=== PATIENT | female | born 1945 | race Caucasian/White ===

== ENCOUNTER 2018-12-23 13:33 | Emergency (ER) | payer MEDICARE ==
[~2018-12-23] VITALS: Ht 167.6 cm; Wt 104.8 kg
[~2018-12-23 13:33] MED LIST: FLOVENT; FLUTICASONE; GUAIFENSIN; IMATREX; PANTOPRAZOLE; SENNA; SERVENT; SIMVASTATIN; SINGULAIR; TUMS; Z.0.AZITHROMYCIN250 PO; ZOLPIDEM; ZYRTEC; [UNRECOGNIZED DRUG - OTHER]; [UNRECOGNIZED DRUG - OTHER]
--- NOTE | 2018-12-23 14:46 | Diagnostic Imaging Report ---
LEFT FOOT X-RAY - 3 VIEWS HISTORY: ^r/o fx ^[id number] ^[id number] COMPARISON: None available. FINDINGS: Bones: Acute transverse fracture of the distal left third proximal phalanx with half bone displacement laterally. Osseous alignment is within normal limits. Joints: Degenerative changes of the metacarpal phalangeal joints. Soft tissues: Soft tissue swelling surrounding the fracture. 1 mm radiopaque opacity adjacent to the distal left fifth toe. IMPRESSION: Acute displaced extra-articular fracture of the proximal left third phalanx. Small radiopacity adjacent to the left fifth digit may represent a small foreign body. Signed by: Dr. Rasheeda Bower M.D. on 12/23/2018 2:43 PM
[2018-12-23] MEDS: LIDOCAINE 1% 5ML-MPF INJ ONE ×2 (14:51→14:52)
[2018-12-23] MEDS ORDERED: TRAMADOL HCL 50 MG TAB PO ONE (15:00)
[2018-12-23 15:28] VITALS: BP 147/82
--- NOTE | 2018-12-23 16:25 | Diagnostic Imaging Report ---
LEFT TOE X-RAY - 1 VIEW HISTORY: ^post redution 3rd toe ^[id number] ^[id number] COMPARISON: None available. FINDINGS: Bones: Interval reduction of the displaced fracture of the distal left-sided proximal phalanx. There is normal alignment. Joints: The joint spaces are well-maintained. Soft tissues: The soft tissues appear unremarkable. IMPRESSION: Successful closed reduction of the displaced fracture of the left third proximal phalanx. Signed by: Dr. Rasheeda Bower M.D. on 12/23/2018 4:22 PM
== END 2018-12-23 15:31 | disposition home or self-care (01) ==
LOC: ER 13:33
DX: S92.512A Displaced fracture of proximal phalanx of left lesser toe(s), initial encounter for closed fracture (principal); W22.09XA Striking against other stationary object, initial encounter; Y93.01 Activity, walking, marching and hiking; Y92.008 Other place in unspecified non-institutional (private) residence as the place of occurrence of the external cause; J44.9 Chronic obstructive pulmonary disease, unspecified
CPT/HCPCS: 99282

== ENCOUNTER 2025-01-13 19:23 | Inpatient (IN) | payer MEDICARE ==
[~2025-01-13] VITALS: Ht 167.6 cm; Wt 104.8 kg
[2025-01-13] MEDS: TRAMADOL HCL 50 MG TAB PO ONE (20:09)
[2025-01-13 20:18] LABS: ALBUMIN/GLOBULIN RATIO 0.5 (0.8-2.0); ANION GAP 20.4 mmol/L (8-16); CALCIUM 8.5 mg/dL (8.4-10.2); CREATININE, SERUM 0.83 mg/dL (0.57-1.11); POTASSIUM 3.4 mmol/L (3.5-5.1); TOTAL PROTEIN 6.3 g/dL (6.5-8.1)
[2025-01-13 20:24] LABS: BASOPHILS # (AUTO) 0.1 (0.0-0.1); BASOPHILS % 0.6 % (0.0-1.0); EOSINOPHILS # (AUTO) 0.1 (0.0-0.4); EOSINOPHILS % 0.6 % (0.0-6.0); HEMATOCRIT 44.8 % (34.2-44.1); HEMOGLOBIN 15.7 g/dL (12.0-16.0); LYMPHOCYTES # (AUTO) 1.9 (1.0-3.2); LYMPHOCYTES % 15.7 % (18.0-39.1); MEAN CORPUSCULAR HEMOGLOBIN 29.1 pg (28-32); MONOCYTES # (AUTO) 1.5 (0.2-0.8); MONOCYTES % 12.6 % (4.4-11.3); NEUTROPHILS # (AUTO) 8.5 (2.1-6.9); PLATELET COUNT 716 x10e3/uL (140-360); RED CELL DISTRIBUTION WIDTH 17.3 % (11.7-14.4); WHITE BLOOD COUNT 12.18 x10e3/uL (4.8-10.8)
[2025-01-13] MEDS: ONDANSETRON HCL INJ 2MG/ML 2ML 2 MG/ML VIAL IV STA (21:07)
[2025-01-13] MEDS ORDERED: IOPAMIDOL 370 MG/ML 100 ML INFUS..BTL INJ ONE (22:07)
[2025-01-13 22:35] LABS: INR 1.16; PROTHROMBIN TIME 15.8 seconds (11.9-14.5)
[2025-01-13 22:36] LABS: PARTIAL THROMBOPLASTIN TIME 39.3 seconds (23.8-35.5)
[2025-01-14] VITALS (8 sets, daily range): BP systolic 83–99; BP diastolic 43–64; PULSE 70–129; RESP 14–22; TEMP 97.7–98.3; O2SAT 92–97
[2025-01-14] MEDS ORDERED: SODIUM CHLORIDE FLUSH 10 ML SYR INJ PRN (03:00)
[2025-01-14 04:36] LABS: TROPONIN I 0.029 ng/mL (0-0.300)
[2025-01-14] MEDS: Morphine 2mg Syringe 2 MG/ML SYR IV PRN (08:34)
[2025-01-14] MEDS ORDERED: ALBUTEROL/IPRATROPIUM 3 ML NEB NEB PRN (09:45)
[2025-01-14 14:28] LABS: BASOPHILS # (AUTO) 0.1 (0.0-0.1); BASOPHILS % 0.7 % (0.0-1.0); EOSINOPHILS # (AUTO) 0.1 (0.0-0.4); EOSINOPHILS % 0.6 % (0.0-6.0); HEMATOCRIT 46.2 % (34.2-44.1); HEMOGLOBIN 15.1 g/dL (12.0-16.0); LYMPHOCYTES # (AUTO) 2.2 (1.0-3.2); LYMPHOCYTES % 17.8 % (18.0-39.1); MEAN CORPUSCULAR HGB CONC 32.7 g/dL (31-35); MEAN CORPUSCULAR VOLUME 88.7 fL (81-99); MONOCYTES # (AUTO) 1.7 (0.2-0.8); MONOCYTES % 14.1 % (4.4-11.3); NEUTROPHILS % 66.2 % (38.7-80.0); PLATELET COUNT 677 x10e3/uL (140-360); RED BLOOD COUNT 5.21 x10e6/uL (3.6-5.1); RED CELL DISTRIBUTION WIDTH 18.7 % (11.7-14.4); WHITE BLOOD COUNT 12.09 x10e3/uL (4.8-10.8)
[2025-01-14 15:32] LABS: LYMPHOCYTES % (MANUAL) 14 % (19-48); MONOCYTES % (MANUAL) 14 % (3.4-9.0); NEUTROPHILS % (MANUAL) 69 % (40-74); REACTIVE LYMPHOCYTES 3
[2025-01-14 15:34] LABS: PLATELET ESTIMATE SLIGHTLY INCREASED; PLATELET MORPHOLOGY COMMENT FEW LARGE
[2025-01-14 15:35] LABS: HYPOCHROMASIA SLIGHT; TARGET CELLS FEW
[2025-01-14 15:36] LABS: RBC MORPHOLOGY COMMENT ABNORMAL
[2025-01-14] MEDS ORDERED: ALBUMIN 25% 12.5GM 50ML 0 ML IV ONE (15:57)
[2025-01-14 16:03] LABS: TROPONIN I 0.026 ng/mL (0-0.300)
[2025-01-14] MEDS: DOCUSATE SODIUM 100 MG CAP PO SCH (17:00)
[2025-01-14] MEDS ORDERED: SIMETHICONE80 MG PO (18:05)
[2025-01-14] MEDS ORDERED: SEREVENT DISKU50 MCG INH (18:05)
[2025-01-14] MEDS ORDERED: MONTELUKAST SOD10 MG PO (18:05)
[2025-01-14] MEDS ORDERED: FENOFIBRATE145 MG PO (18:05)
[2025-01-14] MEDS ORDERED: NEXIUM20 MG PO (18:05)
[2025-01-14] MEDS ORDERED: SENOKOT-S TABL1 EACH PO (18:05)
[2025-01-14] MEDS ORDERED: LASIX20 MG PO (18:05)
[2025-01-14] MEDS ORDERED: FLOMAX0.4 MG PO (18:05)
[2025-01-14] MEDS ORDERED: REGLAN10 MG PO (18:05)
[2025-01-14] MEDS ORDERED: FAMOTIDINE20 MG PO (18:05)
[2025-01-14] MEDS ORDERED: SULINDAC200 MG PO (18:05)
[2025-01-14] MEDS ORDERED: METOPROLOL TART25 MG PO (18:05)
[2025-01-14] MEDS ORDERED: TRULICITY1.5 MG/0.5 SC (18:05)
[2025-01-14] MEDS: FUROSEMIDE INJ 10 MG/ML 2 ML VIAL IV SCH (18:13)
[2025-01-14] MEDS: ENOXAPARIN SOD INJ 40 MG/0.4 ML SYR SC SCH (18:14)
[2025-01-14] MEDS: MELATONIN 3 MG TAB PO PRN (20:11)
[2025-01-14] MEDS: METOPROLOL TARTRATE 25 MG TAB PO SCH (20:12)
[2025-01-14 20:35] LABS: BODY FLUID TYPE PERITONEAL
[2025-01-14 20:36] LABS: BODY FLUID APPEARANCE TURBID; BODY FLUID COLOR YELLOW
[2025-01-14 20:38] LABS: BODY FLUID TYPE PLEURAL
[2025-01-14 20:40] LABS: BODY FLUID APPEARANCE TURBID
[2025-01-14 20:41] LABS: BODY FLUID COLOR YELLOW
[2025-01-14 22:04] LABS: LYMPHOCYTES,BODY FLUID 50 %; MONO/MACROPHG,BODY FLUID 4 %; NEUTROPHILS,BODY FLUID 8754 %
[2025-01-14 22:05] LABS: OTHER CELLS,BODY FLUID 46 %; TOTAL CELLS COUNTED (DIFF) 100
[2025-01-14 22:07] LABS: RBC,BODY FLUID 10000 cells/uL; WBC,BODY FLUID 1168 cells/uL
[2025-01-14 22:08] LABS: WBC,BODY FLUID 540 cells/uL
[2025-01-14 22:09] LABS: RBC,BODY FLUID 1000 cells/uL
[2025-01-14 22:12] LABS: LYMPHOCYTES,BODY FLUID 76 %; NEUTROPHILS,BODY FLUID 3 %
[2025-01-14 22:13] LABS: MONO/MACROPHG,BODY FLUID 17 %; OTHER CELLS,BODY FLUID 4 %; TOTAL CELLS COUNTED (DIFF) 100
[2025-01-14] MEDS: SODIUM CHLORIDE 0.9% 250ML 250 ML IV ONE (22:19)
[2025-01-14] MEDS: MIDODRINE HCL 5 MG TABLET PO SCH (22:19)
[2025-01-15] VITALS (29 sets, daily range): BP systolic 79–124; BP diastolic 40–78; PULSE 57–215; RESP 5–48; TEMP 98.9; O2SAT 87–100
[2025-01-15] MEDS: SODIUM CHLORIDE 0.9% 500ML 500 ML IV ONE (02:33)
[2025-01-15 05:46] LABS: ALPHA FETO-PROTEIN 3.5 ng/mL (0.0-9.2)
[2025-01-15 06:53] LABS: BASOPHILS # (AUTO) 0.1 (0.0-0.1); BASOPHILS % 0.7 % (0.0-1.0); EOSINOPHILS # (AUTO) 0.1 (0.0-0.4); EOSINOPHILS % 0.6 % (0.0-6.0); HEMATOCRIT 42.7 % (34.2-44.1); HEMOGLOBIN 14.4 g/dL (12.0-16.0); LYMPHOCYTES # (AUTO) 1.4 (1.0-3.2); LYMPHOCYTES % 10.9 % (18.0-39.1); MEAN CORPUSCULAR HEMOGLOBIN 28.7 pg (28-32); MEAN CORPUSCULAR HGB CONC 33.7 g/dL (31-35); MEAN CORPUSCULAR VOLUME 85.2 fL (81-99); MONOCYTES # (AUTO) 1.5 (0.2-0.8); MONOCYTES % 11.1 % (4.4-11.3); NEUTROPHILS % 76.2 % (38.7-80.0); PLATELET COUNT 682 x10e3/uL (140-360); RED BLOOD COUNT 5.01 x10e6/uL (3.6-5.1); RED CELL DISTRIBUTION WIDTH 17.4 % (11.7-14.4); WHITE BLOOD COUNT 13.16 x10e3/uL (4.8-10.8)
[2025-01-15 07:32] LABS: ALBUMIN 1.9 g/dL (3.5-5.0); ALBUMIN/GLOBULIN RATIO 0.6 (0.8-2.0); ANION GAP 15.3 mmol/L (8-16); BILIRUBIN,TOTAL 1.1 mg/dL (0.2-1.2); CALCIUM 8.1 mg/dL (8.4-10.2); CREATININE, SERUM 0.79 mg/dL (0.57-1.11); TOTAL PROTEIN 5.3 g/dL (6.5-8.1)
[2025-01-15 07:34] LABS: POTASSIUM 3.3 mmol/L (3.5-5.1)
[2025-01-15] MEDS: SENNOSIDES 8.6 MG TAB PO SCH (08:14)
[2025-01-15] MEDS: ONDANSETRON HCL INJ 2MG/ML 2ML 2 MG/ML VIAL IV PRN (19:50)
[2025-01-15] MEDS: ACETAMINOPHEN 325 MG TAB PO PRN (21:04)
[2025-01-16] VITALS (24 sets, daily range): BP systolic 90–110; BP diastolic 53–80; PULSE 57–120; RESP 10–24; TEMP 95.3–98.7; O2SAT 93–100
[2025-01-16 06:56] LABS: ANION GAP 18.7 mmol/L (8-16); CREATININE, SERUM 1.27 mg/dL (0.57-1.11); POTASSIUM 3.7 mmol/L (3.5-5.1)
[2025-01-16] MEDS: LUBIPROSTONE 24 MCG CAP PO SCH (09:51)
[2025-01-16] MEDS: PROMETHAZINE 12.5MG/ NACL 0.9% 12.5 MG/50 ML BAG IV PRN (14:27)
[2025-01-16 18:03] LABS: TOTAL PROTEIN,BODY FLUID 4.1 g/dL
[2025-01-17] VITALS (36 sets, daily range): BP systolic 88–116; BP diastolic 54–80; PULSE 59–126; RESP 9–21; TEMP 98–98.2; O2SAT 87–100
[2025-01-17] MEDS: FUROSEMIDE INJ 10 MG/ML 2 ML VIAL IV SCH (09:01)
[2025-01-17 09:33] LABS: ANION GAP 16.7 mmol/L (8-16); CALCIUM 8.1 mg/dL (8.4-10.2); CREATININE, SERUM 1.12 mg/dL (0.57-1.11); POTASSIUM 3.7 mmol/L (3.5-5.1)
[2025-01-18] VITALS (31 sets, daily range): BP systolic 89–118; BP diastolic 45–77; PULSE 57–123; RESP 9–22; TEMP 97.8–98; O2SAT 84–97
[2025-01-19] VITALS (28 sets, daily range): BP systolic 96–121; BP diastolic 52–81; PULSE 57–123; RESP 12–21; TEMP 98.3–98.5; O2SAT 88–96
[2025-01-19] MEDS: LACTULOSE SYRUP 20 GM/30 ML UDC PO SCH (09:00)
[2025-01-19] MEDS: BISACODYL 10 MG SUPP PR ONE (09:20)
[2025-01-19] MEDS: SIMETHICONE 80 MG CHEW PO PRN (10:57)
[2025-01-19] MEDS: BISACODYL 5 MG TAB EC PO ONE (20:24)
[2025-01-20] VITALS (44 sets, daily range): BP systolic 90–124; BP diastolic 55–84; PULSE 59–123; RESP 7–21; TEMP 97.3–98.2; O2SAT 88–98
[2025-01-20 08:47] LABS: BASOPHILS # (AUTO) 0.1 (0.0-0.1); BASOPHILS % 0.9 % (0.0-1.0); EOSINOPHILS # (AUTO) 0.1 (0.0-0.4); EOSINOPHILS % 1.2 % (0.0-6.0); HEMATOCRIT 41.7 % (34.2-44.1); HEMOGLOBIN 14.3 g/dL (12.0-16.0); LYMPHOCYTES # (AUTO) 1.6 (1.0-3.2); LYMPHOCYTES % 15.3 % (18.0-39.1); MEAN CORPUSCULAR HEMOGLOBIN 28.9 pg (28-32); MEAN CORPUSCULAR HGB CONC 34.3 g/dL (31-35); MEAN CORPUSCULAR VOLUME 84.2 fL (81-99); MONOCYTES # (AUTO) 1.5 (0.2-0.8); MONOCYTES % 14.3 % (4.4-11.3); NEUTROPHILS # (AUTO) 6.9 (2.1-6.9); NEUTROPHILS % 67.9 % (38.7-80.0); PLATELET COUNT 652 x10e3/uL (140-360); RED BLOOD COUNT 4.95 x10e6/uL (3.6-5.1); RED CELL DISTRIBUTION WIDTH 17.7 % (11.7-14.4); WHITE BLOOD COUNT 10.13 x10e3/uL (4.8-10.8)
[2025-01-20 09:15] LABS: ALBUMIN 1.8 g/dL (3.5-5.0); ALBUMIN/GLOBULIN RATIO 0.5 (0.8-2.0); ANION GAP 13.7 mmol/L (8-16); BILIRUBIN,TOTAL 0.8 mg/dL (0.2-1.2); CALCIUM 8.2 mg/dL (8.4-10.2); CREATININE, SERUM 0.98 mg/dL (0.57-1.11); POTASSIUM 3.7 mmol/L (3.5-5.1); TOTAL PROTEIN 5.4 g/dL (6.5-8.1)
[2025-01-21] VITALS (20 sets, daily range): BP systolic 86–115; BP diastolic 49–91; PULSE 51–132; RESP 10–22; TEMP 97.5–98.6; O2SAT 91–99
[2025-01-21] MEDS: Morphine 2mg Syringe 2 MG/ML SYR IV PRN (13:12)
[2025-01-21] MEDS: MAGNESIUM HYDROXIDE 30 ML UDC PO PRN (14:46)
[2025-01-21] MEDS: METOPROLOL TARTRATE INJ 1 MG/ML VIAL IV PRN (23:05)
[2025-01-22] VITALS (12 sets, daily range): BP systolic 95–140; BP diastolic 55–76; PULSE 59–74; RESP 18–22; TEMP 97.3–98.1; O2SAT 92–100
[2025-01-22 07:14] LABS: BASOPHILS # (AUTO) 0.1 (0.0-0.1); BASOPHILS % 1.1 % (0.0-1.0); EOSINOPHILS # (AUTO) 0.2 (0.0-0.4); EOSINOPHILS % 2.6 % (0.0-6.0); HEMATOCRIT 44.1 % (34.2-44.1); HEMOGLOBIN 14.8 g/dL (12.0-16.0); LYMPHOCYTES # (AUTO) 1.7 (1.0-3.2); MEAN CORPUSCULAR HEMOGLOBIN 28.7 pg (28-32); MEAN CORPUSCULAR HGB CONC 33.6 g/dL (31-35); MEAN CORPUSCULAR VOLUME 85.6 fL (81-99); MONOCYTES # (AUTO) 1.6 (0.2-0.8); MONOCYTES % 17.6 % (4.4-11.3); NEUTROPHILS # (AUTO) 5.2 (2.1-6.9); NEUTROPHILS % 59.2 % (38.7-80.0); PLATELET COUNT 646 x10e3/uL (140-360); RED BLOOD COUNT 5.15 x10e6/uL (3.6-5.1); RED CELL DISTRIBUTION WIDTH 18.4 % (11.7-14.4); WHITE BLOOD COUNT 8.81 x10e3/uL (4.8-10.8)
[2025-01-22 07:30] LABS: INR 1.14; PROTHROMBIN TIME 15.6 seconds (11.9-14.5)
[2025-01-22 07:31] LABS: PARTIAL THROMBOPLASTIN TIME 36.2 seconds (23.8-35.5)
[2025-01-22 07:43] LABS: ANION GAP 15.3 mmol/L (8-16); CALCIUM 8.5 mg/dL (8.4-10.2); CREATININE, SERUM 1.06 mg/dL (0.57-1.11); POTASSIUM 4.3 mmol/L (3.5-5.1)
[2025-01-22] MEDS ORDERED: MIDODRINE HCL5 MG PO (09:44)
[2025-01-22] MEDS ORDERED: MILK OF MA400 MG/5 M PO (09:44)
[2025-01-22] MEDS ORDERED: SENOKOT8.6 MG PO (09:44)
[2025-01-22] MEDS ORDERED: LOPRESSOR25 MG PO (09:44)
[2025-01-22] MEDS ORDERED: SIMETHICONE80 MG PO (09:44)
[2025-01-22] MEDS ORDERED: Docusate Sodium PO (09:44)
[2025-01-22] MEDS: ENOXAPARIN SOD INJ 40 MG/0.4 ML SYR SC SCH (16:58)
[2025-01-23] VITALS (12 sets, daily range): BP systolic 95–118; BP diastolic 52–62; PULSE 59–67; RESP 17–20; TEMP 97.8–98.7; O2SAT 91–100
[2025-01-23] MEDS: ALBUMIN 25% 25GM 100ML 0.25 GM/ML BTL IV ONE (18:13)
[2025-01-24] VITALS (7 sets, daily range): BP systolic 98–102; BP diastolic 59–70; PULSE 58–118; RESP 17–20; TEMP 98.1–98.6; O2SAT 94–98
[2025-01-24 07:29] LABS: ANION GAP 14.8 mmol/L (8-16); CALCIUM 8.1 mg/dL (8.4-10.2); CREATININE, SERUM 0.93 mg/dL (0.57-1.11); POTASSIUM 3.8 mmol/L (3.5-5.1)
[2025-01-24 12:22] LABS: BASOPHILS # (AUTO) 0.1 (0.0-0.1); BASOPHILS % 0.7 % (0.0-1.0); EOSINOPHILS # (AUTO) 0.7 (0.0-0.4); EOSINOPHILS % 8.2 % (0.0-6.0); LYMPHOCYTES # (AUTO) 1.4 (1.0-3.2); LYMPHOCYTES % 16.6 % (18.0-39.1); MEAN CORPUSCULAR HEMOGLOBIN 28.9 pg (28-32); MEAN CORPUSCULAR HGB CONC 33.3 g/dL (31-35); MEAN CORPUSCULAR VOLUME 86.6 fL (81-99); MONOCYTES # (AUTO) 1.5 (0.2-0.8); MONOCYTES % 17.5 % (4.4-11.3); NEUTROPHILS # (AUTO) 4.8 (2.1-6.9); NEUTROPHILS % 56.6 % (38.7-80.0); PLATELET COUNT 551 x10e3/uL (140-360); RED BLOOD COUNT 4.85 x10e6/uL (3.6-5.1); RED CELL DISTRIBUTION WIDTH 18.9 % (11.7-14.4); WHITE BLOOD COUNT 8.53 x10e3/uL (4.8-10.8)
== END 2025-01-24 14:42 | disposition other institution (70) | DRG 432 ==
LOC: ER 19:41 → ERHOLD 01-14 03:01 → ICU 01-14 15:54 → MED/SURG3 01-21 11:03
PROVIDERS: ADMIT Internal Medicine; ATTEND Internal Medicine
PROC: 3E0F7SF Introduction of Other Gas into Respiratory Tract, Via Natural or Artificial Opening (ICD-10-PCS; 2025-01-13)
PROC: 0W9G3ZX Drainage of Peritoneal Cavity, Percutaneous Approach, Diagnostic (ICD-10-PCS; principal; 2025-01-14)
PROC: 0W993ZX Drainage of Right Pleural Cavity, Percutaneous Approach, Diagnostic (ICD-10-PCS; 2025-01-14)
PROC: 0W993ZX Drainage of Right Pleural Cavity, Percutaneous Approach, Diagnostic (ICD-10-PCS; 2025-01-22)
PROC: 0W9G3ZX Drainage of Peritoneal Cavity, Percutaneous Approach, Diagnostic (ICD-10-PCS; 2025-01-24)
DX: K74.60 Unspecified cirrhosis of liver (principal); J96.01 Acute respiratory failure with hypoxia; C78.6 Secondary malignant neoplasm of retroperitoneum and peritoneum; C79.63 Secondary malignant neoplasm of bilateral ovaries; R18.8 Other ascites; J90 Pleural effusion, not elsewhere classified; N17.9 Acute kidney failure, unspecified; N13.30 Unspecified hydronephrosis; J95.811 Postprocedural pneumothorax; I47.9 Paroxysmal tachycardia, unspecified; K59.00 Constipation, unspecified; J44.9 Chronic obstructive pulmonary disease, unspecified; D75.838 Other thrombocytosis; Z80.49 Family history of malignant neoplasm of other genital organs; Z80.1 Family history of malignant neoplasm of trachea, bronchus and lung; Z79.2 Long term (current) use of antibiotics; Z79.891 Long term (current) use of opiate analgesic; Z79.51 Long term (current) use of inhaled steroids; M19.90 Unspecified osteoarthritis, unspecified site; E66.9 Obesity, unspecified; Z68.37 Body mass index [BMI] 37.0-37.9, adult
CPT/HCPCS: 32555; 36415; 49083; 71045; 71260; 74177; 74470; 76604; 76705; 80048; 80053; 82040; 82105; 82378; 82550; 82945; 83615; 83880; 84157; 84484; 85025; 85610; 85730; 86301; 86304; 87070; 87205; 88112; 88305; 88342; 89051; 93005; 94799; 99252; 99285; C1729; J1650; J1940; J2270; J2405; J2550; J7040; J7050; P9047; Q9967